=== PATIENT | male | born 1990 | race Caucasian/White ===

== ENCOUNTER 2020-05-26 14:53 | Emergency (ER) | payer OTHER ==
[~2020-05-26 14:53] MED LIST: IBUPROFEN800 MG PO; KEFLEX500 MG PO
[2020-05-26] MEDS ORDERED: NAPROXEN500 MG PO (15:59)
== END 2020-05-26 16:07 | disposition home or self-care (01) ==
LOC: FER 14:53
DX: S80.11XA Contusion of right lower leg, initial encounter (principal); F17.210 Nicotine dependence, cigarettes, uncomplicated; W50.0XXA Accidental hit or strike by another person, initial encounter
CPT/HCPCS: 73590